=== PATIENT | female | born 1945 | race Caucasian/White ===

== ENCOUNTER → 2019-05-11 15:24 | Outpatient (ROUT) | payer OTHER, SELFPAY | PROVIDERS: PCP Family Medicine; Visit Provider Internal Medicine | DX: N39.0 Urinary tract infection, site not specified (principal) | CPT/HCPCS: 87086 ==

== ENCOUNTER 2020-01-25 12:51 | Emergency (ER) | payer OTHER, SELFPAY ==
--- NOTE | 2020-01-25 13:02 | ED.FALL ---
HPI - Fall General Chief Complaint: Fall Stated Complaint: Fell, Sharp Intense Pain In Rt Ribs, Lats Spasm Time Seen by Provider: 01/25/20 12:55 Source: patient Mode of arrival: Ambulatory Limitations: no limitations History of Present Illness HPI Narrative: 74-year-old female nonsmoker with history of insomnia, stroke, migraine, intervertebral disc pain of lumbar and thoracic region presents with a chief complaint of severe right-sided rib pain and spasming after a fall few days ago. She was sitting in her office and slipped out of her chair and landed on the right side ribs. Since then she has had intense pain particular with any range of motion. She denies any significant shortness of breath and has had no hemoptysis. She denies any head, neck or back pain. She denies other injury and is otherwise well and free of complaint. She has tried taking ibuprofen and Tylenol with little relief. She has tried heating pads, ice packs without relief. MD complaint: fall Onset (ago): day(s) Fall from: chair Fall witnessed: no Place fall occurred: home Loss of consciousness: none Prolonged down time: no Symptoms prior to fall: none Context: tripped/slipped Location of injury: chest Severity: moderate Quality: sharp Related Data Previous Rx's Medication Instructions Recorded gabapentin [Neurontin] 600 mg PO TID #540 cap 08/24/16 hydrocodone-acetaminophen 0 tab PO Q6HP PRN #30 tab 02/12/17 atorvastatin 10 mg tablet 10 mg PO HS #90 tab 09/17/17 atenolol 50 mg tablet 50 mg PO QDAY #90 tab 12/20/17 trazodone 50 mg tablet 50 mg PO HS #90 tab 12/20/17 sertraline 50 mg tablet 75 mg PO QDAY #135 tab 03/18/18 topiramate 50 mg tablet 50 mg PO BID #180 tab 06/16/18 cyclobenzaprine 10 mg PO TID PRN #14 tab 01/25/20 hydrocodone-acetaminophen 1 tab PO Q4-6H PRN #20 tab 01/25/20 lidocaine [Lidoderm] 1 patch TOP DAILY #15 each 01/25/20 Allergies Allergy/AdvReac Type Severity Reaction Status Date / Time Penicillins [PENICILLINS] Allergy Unknown Unverified 07/10/17 12:18 codeine [CODEINE] AdvReac Severe Unverified 07/10/17 12:18 Review of Systems Constitutional Constitutional: Denies chills, Denies fatigue, Denies fever(s), Denies frequent falls, Denies lethargy and Denies weakness Eyes Eyes: Denies change in vision, Denies eye discharge, Denies irritation and Denies loss of vision ENT Ears, Nose, Mouth, and Throat: Denies change in voice, Denies dizziness, Denies neck pain, Denies sore throat and Denies throat swelling Cardiovascular Cardiovascular: Reports chest pain, Denies irregular heart rhythm, Denies lightheadedness, Denies palpitations, Denies dyspnea, Denies dyspnea on exertion and Denies orthopnea Respiratory Respiratory: Denies cough, Denies dyspnea, Denies dyspnea on exertion and Denies wheezing Gastrointestinal Gastrointestinal: Denies abdominal pain, Denies change in bowel habits, Denies diarrhea, Denies nausea and Denies vomiting Musculoskeletal Musculoskeletal: Denies neck pain and Denies numbness Integumentary/Breasts Skin/Breast: Denies pruritus, Denies erythema, Denies rash and Denies wounds Neurologic Neurologic: Denies behavioral changes, Denies confusion, Denies dizziness, Denies frequent falls, Denies loss of vision, Denies numbness and Denies weakness Psychiatric Psychiatric: Denies anxiety, Denies behavioral changes, Denies confusion, Denies depression, Denies homicidal ideation and Denies suicidal ideation Endocrine Endocrine: Denies fatigue, Denies flushing and Denies palpitations Hematologic/Lymphatic Hematologic/Lymphatic: Denies easy bruising Allergic/Immunologic Allergic/Immunologic: Denies urticaria, Denies throat swelling and Denies wheezing Patient History Social History Smoking Status: Never smoker Smoking Status: Never smoker alcohol intake frequency: 0-2 drinks per day Substance Use Type: does not use Exam Narrative Exam Narrative: GENERAL: [74] year old patient appears stated age. Well-nourished, well-developed patient, in mild distress. GCS 15 HEAD: Atraumatic. Normocephalic. EYES: Pupils equal round and reactive. Extraocular motions intact. No scleral icterus. No injection or drainage. ENT: Nose without bleeding, purulent drainage. Throat without erythema, tonsillar hypertrophy or exudate. Airway patent. NECK: Trachea midline. Non tender CARDIOVASCULAR: Regular rate and rhythm without murmurs, gallops, or rubs. RESPIRATORY: Clear to auscultation. Breath sounds equal bilaterally. No wheezes, rales, or rhonchi. GASTROINTESTINAL: Abdomen soft, non-tender, nondistended. EXTREMITIES: No edema or joint tenderness. BACK: Nontender without deformity or crepitance. No flank tenderness. NEURO: AOx3. SKIN: No rash or erythema of visible areas Initial Vital Signs Initial Vital Signs: Vital Signs Temperature 97.4 F L 01/25/20 13:06 Pulse Rate 79 01/25/20 13:06 Respiratory Rate 18 01/25/20 13:06 Blood Pressure 167/81 H 01/25/20 13:06 Pulse Oximetry 96 01/25/20 13:06 Course Orders Ordered: ED Orders 01/25/20 13:02 XR ribs RT min 3V w CXR1V Stat Discontinued Medications Lidocaine (Lidoderm) 1 each TOP NOW ONE Stop: 01/25/20 13:03 Last Admin: 01/25/20 13:19 Dose: 1 each Documented by: PALOMA Vital Signs Vital signs: Vital Signs - 8 hr 01/25/20 13:06 01/25/20 13:53 Temperature 97.4 F L Pulse Rate 79 Respiratory Rate 18 Blood Pressure 167/81 H Pulse Oximetry 96 99 MDM - Fall Imaging Data Chest x-ray: Radiologist's Impression: Roger Lynne 74 F [address] [address] XRay Report Signed Patient: Stephie Lynne#: [id number] : 1945cct:[id number] Age/Sex: 74 / FDate of Service: 01/25/20 Loc: ED Accession Number: [id number] Procedure: XR ribs RT min 3V w CXR1V Ordering Provider: Lew Gonzales D.O. PROCEDURE: XR RIBS RT MIN 3V W CXR 1V INDICATIONS: fall with severe pain, right lateral ribs TECHNIQUE: 2 views of the right ribs were acquired, along with a single view chest. COMPARISON: [facility], , CHEST 2 VIEW, 08/21/2012, 15:25. FINDINGS: Surgical changes and devices: Cholecystectomy clips. Bones and chest wall: Minimally displaced right lateral 9th rib fracture. No dislocations. No suspicious bony lesions. Overlying soft tissues appear unremarkable. Lungs and pleura: No pleural effusions or pneumothorax. Large hiatal hernia. Curvilinear opacity at the right lung base Mediastinum: Mediastinal contours appear normal. Heart size is normal. IMPRESSION: Minimally displaced right lateral 9th rib fracture is seen. Suspect mild right basilar atelectasis rather than contusion. Large hiatal hernia. Dictated by: Donn Harrington M.D. on 01/25/2020 at 13:22 Approved by: Donn Harrington M.D. on 01/25/2020 at 13:27 Discharge Plan Departure Patient Disposition: Home Clinical Impression: Closed rib fracture Qualifiers: Encounter type: initial encounter Rib fracture type: single rib Laterality: right Qualified Code(s): S22.31XA - Fracture of one rib, right side, initial encounter for closed fracture Instructions: DI for Rib Fracture Activity Restrictions/Additional Instructions: *You have been diagnosed with [fall with right 9th rib fracture] *What to do: *Take medications as directed *Follow up with your primary care provider in 2-3 days, call for an appointment. Let them know you were seen in the Emergency Department and that we ask that you be seen in follow up *Return to ER if you should have any new, worsening or concerning symptoms You have been prescribed narcotic medications. While on these medications you cannot drive or operate heavy machinery. Additionally you cannot sign legal documents or perform any duties such as this. Many people get constipated on narcotic medications so it would be advisable to discuss stool softeners with the pharmacist when you pick up man your prescription. Please understand that we cannot provide further refills of narcotics or controlled substances through the ED and your pain management will need to be through your Primary Care Provider Prescriptions: New cyclobenzaprine 10 mg tablet 10 mg PO TID PRN (Reason: muscle spasm) Qty: 14 RF: 0 hydrocodone-acetaminophen 5-325 mg tablet 1 tab PO Q4-6H PRN (Reason: pain) Qty: 20 RF: 0 lidocaine [Lidoderm] 5 % adhesive patch,medicated 1 patch TOP DAILY Qty: 15 RF: 0 No Action gabapentin [Neurontin] 300 MG capsule 600 mg PO TID Qty: 540 RF: 3 hydrocodone-acetaminophen 5 MG/325 MG tablet 0 tab PO Q6HP PRNQty: 30 RF: 0 atorvastatin [Lipitor] 10 mg tablet 10 mg PO HS Qty: 90 RF: 1 trazodone 50 mg tablet 50 mg PO HS Qty: 90 RF: 3 atenolol 50 mg tablet 50 mg PO QDAY Qty: 90 RF: 3 sertraline 50 mg tablet 75 mg PO QDAY Qty: 135 RF: 0 topiramate [Topamax] 50 mg tablet 50 mg PO BID Qty: 180 RF: 0 Referrals: James Camacho MD [Primary Care Provider] -
[2020-01-25 13:06] VITALS: BP 167/81; PULSE 79; RESP 18; TEMP 36.3; O2SAT 96; BMI 27.4
[2020-01-25] MEDS: LIDOCAINE PATCH 1 EACH ADH..PATCH TOP (13:19)
[2020-01-25 13:53] VITALS: O2SAT 99
[2020-01-25 13:56] VITALS: BP 165/77; PULSE 64; RESP 16; O2SAT 98
== END 2020-01-25 13:56 | disposition home or self-care (01) ==
PROVIDERS: Emergency Provider Emergency Medicine; PCP Internal Medicine
DX: S22.31XA Fracture of one rib, right side, initial encounter for closed fracture (principal); W19.XXXA Unspecified fall, initial encounter
CPT/HCPCS: 71101; 99283

== ENCOUNTER 2020-10-14 11:14 | Emergency (ER) | payer OTHER, SELFPAY ==
[2020-10-14 11:23] VITALS: BP 160/72; PULSE 60; RESP 14; TEMP 36.7; O2SAT 96
--- NOTE | 2020-10-14 11:53 | ED.SKABFB ---
HPI - Skin/Abscess/Foreign Bdy General Chief complaint: Skin/Abscess/Foreign Body Stated complaint: right hand swelling/pain from bug bite Time Seen by Provider: 10/14/20 11:51 Source: patient Mode of arrival: Ambulatory Limitations: no limitations History of Present Illness HPI narrative: Patient is a 75-year-old female who several days ago sustained which she states was a bug bite on the back of her right ring finger. Since that time she has increasing pain and swelling until over the past 24 hours she has noticed the swelling and redness extend to the back of her hand. She does have some movement difficulties because of the swelling. No fevers. Has not tried anything for the symptoms prior to arrival. Related Data Previous Rx's Medication Instructions Recorded gabapentin 300 mg capsule 600 mg PO TID #540 cap 08/24/16 (Neurontin) hydrocodone 5 mg-acetaminophen 325 0 tab PO Q6HP PRN #30 tab 02/12/17 mg tablet atorvastatin 10 mg tablet (Lipitor) 10 mg PO HS #90 tab 09/17/17 atenolol 50 mg tablet 50 mg PO QDAY #90 tab 12/20/17 trazodone 50 mg tablet 50 mg PO HS #90 tab 12/20/17 sertraline 50 mg tablet 75 mg PO QDAY #135 tab 03/18/18 topiramate 50 mg tablet (Topamax) 50 mg PO BID #180 tab 06/16/18 cyclobenzaprine 10 mg tablet 10 mg PO TID PRN #14 tab 01/25/20 hydrocodone 5 mg-acetaminophen 325 1 tab PO Q4-6H PRN #20 tab 01/25/20 mg tablet lidocaine 5 % topical patch 1 patch TOP DAILY #15 each 01/25/20 (Lidoderm) doxycycline hyclate 100 mg tablet 100 mg PO BID 7 Days #14 tab 10/14/20 Allergies Allergy/AdvReac Type Severity Reaction Status Date / Time Penicillins [PENICILLINS] Allergy Unknown Verified 10/14/20 11:27 codeine [CODEINE] AdvReac Severe Difficulty Verified 10/14/20 11:27 Breathing Review of Systems Constitutional Constitutional: Denies fever(s) Cardiovascular Cardiovascular: Reports system reviewed and no additional complaints, except as documented Respiratory Respiratory: Reports system reviewed and no additional complaints, except as documented Gastrointestinal Gastrointestinal: Reports system reviewed and no additional complaints, except as documented Musculoskeletal Musculoskeletal: Reports as per HPI Integumentary/Breasts Skin/Breast: Reports as per HPI Neurologic Neurologic: Reports system reviewed and no additional complaints, except as documented Hematologic/Lymphatic On Anticoagulants: No Patient History Medical History Anxiety (02/12/17) Depression (01/10/15) History of migraine (01/10/15) History of stroke (01/10/15) Social History Smoking Status: Never smoker Smoking Status: Never smoker alcohol intake frequency: 0-2 drinks per day Alcohol type: wine Substance Use Type: does not use Exam Initial Vital Signs Initial Vital Signs: Vital Signs Temperature 98.1 F 10/14/20 11:23 Pulse Rate 60 10/14/20 11:23 Respiratory Rate 14 10/14/20 11:23 Blood Pressure 160/72 H 10/14/20 11:23 Pulse Oximetry 96 10/14/20 11:23 Resp Effort & Inspection: normal respiratory effort Cardio Pulses: radial pulses present on the right Skin Other: Patient does have circumferential swelling and redness to her right ring finger with erythema extending on the dorsum of her hand. Does not extend proximal to the wrist. Neuro General: patient alert, patient awake, patient oriented x3 and moves all extremities Extrem Other: No tenderness along the flexor tendons of the ring finger. She is able to flex and extend without discomfort but it is limited somewhat secondary to swelling. Psych Appearance: grossly normal and well kempt Course Vital Signs Vital signs: Vital Signs - 8 hr 10/14/20 11:23 Temperature 98.1 F Pulse Rate 60 Respiratory Rate 14 Blood Pressure 160/72 H Pulse Oximetry 96 MDM - Skin/Abscess/Foreign Bdy MDM Narrative Medical decision making narrative: Patient is well-appearing. Her finger infection is consistent with cellulitis. Low suspicion for abscess. Low suspicion for flexor tenosynovitis. Will start the patient on oral antibiotics. She was given strict return precautions with regard to returning. She expressed understanding and agreement this plan. Discharge Plan Departure Patient Disposition: Home Clinical Impression: Cellulitis Instructions: DI for Cellulitis -- Adult Activity Restrictions/Additional Instructions: A prescription for antibiotics was electronically transmitted to [facility]. Please start taking them as directed. If your symptoms worsen over the next 24-48 hours you do need to return to the emergency department for further evaluation. Contact your primary provider for follow-up. Prescriptions: New doxycycline hyclate 100 mg tablet 100 mg PO BID 7 Days Qty: 14 RF: 0 No Action gabapentin [Neurontin] 300 MG capsule 600 mg PO TID Qty: 540 RF: 3 hydrocodone-acetaminophen 5 MG/325 MG tablet 0 tab PO Q6HP PRNQty: 30 RF: 0 atorvastatin [Lipitor] 10 mg tablet 10 mg PO HS Qty: 90 RF: 1 trazodone 50 mg tablet 50 mg PO HS Qty: 90 RF: 3 atenolol 50 mg tablet 50 mg PO QDAY Qty: 90 RF: 3 sertraline 50 mg tablet 75 mg PO QDAY Qty: 135 RF: 0 topiramate [Topamax] 50 mg tablet 50 mg PO BID Qty: 180 RF: 0 cyclobenzaprine 10 mg tablet 10 mg PO TID PRN (Reason: muscle spasm) Qty: 14 RF: 0 hydrocodone-acetaminophen 5-325 mg tablet 1 tab PO Q4-6H PRN (Reason: pain) Qty: 20 RF: 0 lidocaine [Lidoderm] 5 % adhesive patch,medicated 1 patch TOP DAILY Qty: 15 RF: 0 Referrals: James Camacho MD [Primary Care Provider] -
== END 2020-10-14 12:03 | disposition home or self-care (01) ==
PROVIDERS: Emergency Provider Emergency Medicine; PCP Internal Medicine
DX: L03.011 Cellulitis of right finger (principal)
CPT/HCPCS: 99281

== ENCOUNTER 2021-08-15 11:18 | Emergency (ER) | payer OTHER, SELFPAY ==
[2021-08-15 11:20] VITALS: BP 133/63; PULSE 68; RESP 14; TEMP 36.8; O2SAT 97; BMI 28.3
--- NOTE | 2021-08-15 11:27 | DI.RAD.S_ITS ---
PROCEDURE: XR HAND RT MIN 3V INDICATIONS: bilateral hand injury TECHNIQUE: 3 views of the hand(s) acquired. COMPARISON: None. FINDINGS: Bones: No fractures or dislocations. Carpal bones are normally aligned. No suspicious bony lesions. Soft tissues: No suspicious soft tissue calcifications. IMPRESSION: No acute fracture. No osseous lesion. If symptoms and/or clinical suspicion for pathology persist, further assessment with repeat, or advanced imaging (e.g., CT, MRI, or bone scan) may be helpful for further assessment. Dictated by: Mariposa Bray M.D. on 08/15/2021 at 11:59 Approved by: Mariposa Bray M.D. on 08/15/2021 at 12:00
--- NOTE | 2021-08-15 11:27 | DI.RAD.S_ITS ---
PROCEDURE: XR HAND LT MIN 3V INDICATIONS: bilateral hand injury TECHNIQUE: 3 views of the hand(s) acquired. COMPARISON: None. FINDINGS: Bones: Small bony fragment adjacent to the distal aspect of the proximal phalanx of the 1st digit.. Carpal bones are normally aligned. No suspicious bony lesions. Soft tissues: No suspicious soft tissue calcifications. IMPRESSION: Small bony fragment adjacent to the 1st digit as described above, possibly indicating a small chip or avulsion fracture. Clinical correlation recommended. Dictated by: Mariposa Bray M.D. on 08/15/2021 at 11:58 Approved by: Mariposa Bray M.D. on 08/15/2021 at 11:58
--- NOTE | 2021-08-15 11:43 | PC.NURSE ---
Pt reports she was trying to prevent a chest from falling and top of both hands were hit by wooden chest. Right middle and left pointer finger are still painful when trying to complete daily tasks. States I can't hold a cup with one hand and I keep dropping plates. Bruising and some swelling still present. Pt has been using ice, heat, and ibuprofen.
--- NOTE | 2021-08-15 12:21 | ED.UPPEXIN ---
HPI - Extremity Injury (Upper) <Tawnya Hernandez PA-C - Last Filed: 08/15/21 12:31> General Chief Complaint: Extremity Injury, Upper Stated Complaint: Wood Chest fell on hands 2 wks ago, pain in hands Time Seen by Provider: 08/15/21 11:46 Source: patient Mode of arrival: Ambulatory History of Present Illness HPI narrative: 75-year-old female presents to the ED for bilateral hand pain from an injury sustained 10 days prior to arrival. Patient had a wooden chest fall on her bilateral hands by accident, since when patient has had pain on bilateral dorsal aspects of her hands. 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 Patient denies numbness, tingling, weakness. Patient is not on blood thinners. Related Data Previous Rx's Medication Instructions Recorded gabapentin 300 mg capsule 600 mg PO TID #540 cap 08/24/16 (Neurontin) hydrocodone 5 mg-acetaminophen 325 0 tab PO Q6HP PRN #30 tab 02/12/17 mg tablet atorvastatin 10 mg tablet (Lipitor) 10 mg PO HS #90 tab 09/17/17 atenolol 50 mg tablet 50 mg PO QDAY #90 tab 12/20/17 trazodone 50 mg tablet 50 mg PO HS #90 tab 12/20/17 sertraline 50 mg tablet 75 mg PO QDAY #135 tab 03/18/18 topiramate 50 mg tablet (Topamax) 50 mg PO BID #180 tab 06/16/18 cyclobenzaprine 10 mg tablet 10 mg PO TID PRN #14 tab 01/25/20 hydrocodone 5 mg-acetaminophen 325 1 tab PO Q4-6H PRN #20 tab 01/25/20 mg tablet lidocaine 5 % topical patch 1 patch TOP DAILY #15 each 01/25/20 (Lidoderm) Allergies Allergy/AdvReac Type Severity Reaction Status Date / Time Penicillins [PENICILLINS] Allergy Unknown Verified 08/15/21 11:25 codeine [CODEINE] AdvReac Severe Difficulty Verified 08/15/21 11:25 Breathing Review of Systems <Tawnya Hernandez PA-C - Last Filed: 08/15/21 12:31> Review of Systems ROS Unobtainable: All systems reviewed & are unremarkable except as noted in HPI and below Constitutional Constitutional: Denies chills, Denies fatigue, Denies fever(s), Denies frequent falls, Denies lethargy and Denies weakness Eyes Eyes: Denies change in vision, Denies eye discharge, Denies irritation and Denies loss of vision ENT Ears, Nose, Mouth, and Throat: Denies change in voice, Denies dizziness, Denies neck pain, Denies sore throat and Denies throat swelling Cardiovascular Cardiovascular: Denies chest pain, Denies irregular heart rhythm, Denies lightheadedness, Denies palpitations, Denies dyspnea, Denies dyspnea on exertion and Denies orthopnea Respiratory Respiratory: Denies cough, Denies dyspnea, Denies dyspnea on exertion and Denies wheezing Gastrointestinal Gastrointestinal: Denies abdominal pain, Denies change in bowel habits, Denies diarrhea, Denies nausea and Denies vomiting Genitourinary Genitourinary: Denies hematuria, Denies flank pain, Denies urinary incontinence and Denies urinary urgency Musculoskeletal Musculoskeletal: Denies back pain, Denies muscle weakness, Denies neck pain, Denies numbness and Denies tingling Comments: Bilateral hand pain Integumentary/Breasts Skin/Breast: Denies pruritus, Denies erythema, Denies rash and Denies wounds Neurologic Neurologic: Denies behavioral changes, Denies confusion, Denies dizziness, Denies frequent falls, Denies loss of vision, Denies numbness, Denies tingling and Denies weakness Psychiatric Psychiatric: Denies anxiety, Denies behavioral changes, Denies confusion, Denies depression, Denies homicidal ideation and Denies suicidal ideation Endocrine Endocrine: Denies fatigue, Denies flushing and Denies palpitations Hematologic/Lymphatic Hematologic/Lymphatic: Denies easy bruising Allergic/Immunologic Allergic/Immunologic: Denies urticaria, Denies throat swelling and Denies wheezing Patient History <Tawnya Hernandez PA-C - Last Filed: 08/15/21 12:31> Medical History Anxiety (02/12/17) Depression (01/10/15) History of migraine (01/10/15) History of stroke (01/10/15) Social History Smoking Status: Never smoker Smoking Status: Never smoker alcohol intake frequency: 0-2 drinks per day Alcohol type: wine Substance Use Type: does not use Exam <Tawnya Hernandez PA-C - Last Filed: 08/15/21 12:31> Initial Vital Signs Initial Vital Signs: Vital Signs Temperature 98.3 F 08/15/21 11:20 Pulse Rate 68 08/15/21 11:20 Respiratory Rate 14 08/15/21 11:20 Blood Pressure 133/63 08/15/21 11:20 Pulse Oximetry 97 08/15/21 11:20 Const General: cooperative, healthy appearing and comfortable HENCO Head: normal to inspection Eyes General: Yes appearance normal, both eyes and all related structures Resp Effort & Inspection: normal respiratory effort Cardio Rate: regular rate Skin General: no rashes or lesions noted Neuro General: patient alert, patient awake and patient oriented x3 Extrem Other: Tenderness to palpation of bilateral dorsal aspects of hands. No bruising, swelling, erythema. Skin is intact. Strength and sensation is intact. Neurovascularly intact. Compartments soft. Psych Appearance: grossly normal Mental Status: mental status grossly normal <DO Mita Decker Last Filed: 08/18/21 07:00> Initial Vital Signs Initial Vital Signs: Vital Signs Temperature 98.3 F 08/15/21 11:20 Pulse Rate 68 08/15/21 11:20 Respiratory Rate 14 08/15/21 11:20 Blood Pressure 133/63 08/15/21 11:20 Pulse Oximetry 97 08/15/21 11:20 Course <DANY Jansen Last Filed: 08/15/21 12:31> Orders Ordered: ED Orders 08/15/21 11:27 XR hand LT min 3V Stat XR hand RT min 3V Stat Vital Signs Vital signs: Vital Signs - 8 hr 08/15/21 11:20 Temperature 98.3 F Pulse Rate 68 Respiratory Rate 14 Blood Pressure 133/63 Pulse Oximetry 97 <DO Mita Decker Last Filed: 08/18/21 07:00> Orders Ordered: ED Orders 08/15/21 11:27 XR hand LT min 3V Stat XR hand RT min 3V Stat Vital Signs Vital signs: Vital Signs - 8 hr 08/15/21 11:20 Temperature 98.3 F Pulse Rate 68 Respiratory Rate 14 Blood Pressure 133/63 Pulse Oximetry 97 MDM - Extremity Injury (Upper) <DANY Jansen Last Filed: 08/15/21 12:31> Medical Records Attestation: I reviewed the patient's medical records. Imaging Data Extremity x-ray #1: Radiologist's Impression: PROCEDURE:? XR HAND RT MIN 3V ? INDICATIONS:? bilateral hand injury ? TECHNIQUE:? 3 views of the hand(s) acquired.? ? COMPARISON:? None. ? FINDINGS:? ? Bones:? No fractures or dislocations.? Carpal bones are normally aligned.? No suspicious bony lesions.? ? Soft tissues:? No suspicious soft tissue calcifications.? ? ? IMPRESSION:? No acute fracture. No osseous lesion. If symptoms and/or clinical suspicion for pathology persist, further assessment with repeat, or advanced imaging (e.g., CT, MRI, or bone scan) may be helpful for further assessment. ? ? Dictated by: Mariposa Bray M.D. on 08/15/2021 at 11:59 ? ? Approved by: Mariposa Bray M.D. on 08/15/2021 at 12:00 ? Extremity x-ray #2: Radiologist's Impression: PROCEDURE:? XR HAND LT MIN 3V ? INDICATIONS:? bilateral hand injury ? TECHNIQUE:? 3 views of the hand(s) acquired.? ? COMPARISON:? None. ? FINDINGS:? ? Bones:? Small bony fragment adjacent to the distal aspect of the proximal phalanx of the 1st digit..? Carpal bones are normally aligned.? No suspicious bony lesions.? ? Soft tissues:? No suspicious soft tissue calcifications.? ? ? IMPRESSION:? Small bony fragment adjacent to the 1st digit as described above, possibly indicating a small chip or avulsion fracture.? Clinical correlation recommended.? ? Dictated by: Mariposa Bray M.D. on 08/15/2021 at 11:58 ? ? Approved by: Mariposa Bray M.D. on 08/15/2021 at 11:58 ? MDM Narrative Medical decision making narrative: 75-year-old female presents to the ED for bilateral hand pain from an injury sustained 10 days prior to arrival. Concern for musculoskeletal sprain/strain versus fracture/dislocation. X-rays were obtained of bilateral hands, which showed no major fracture/dislocation in the areas where the patient complains of pain. There was a small avulsion fracture noted in in the region of the PIP of 1st digit, however patient complains of no pain in that area. Supportive care discussed with patient with ibuprofen/Tylenol, warmth. Patient agrees to follow-up with her PCP/physical therapy if her symptoms do not resolve in the next few days. ED precautions discussed with patient. Patient verbalized understanding. Discharge Plan Departure Patient Disposition: Home Clinical Impression: Hand injury Instructions: DI for Hand Injury Activity Restrictions/Additional Instructions: You were evaluated in the ED today for a hand injury. Your x-rays did not show any major fractures or dislocations. A small avulsion fracture which is [place] tiny piece of your bone in your left thumb appears to be chipped, however you do not have any pain in that area, and no treatment is indicated for it. May take ibuprofen or Tylenol for your symptoms. Please follow-up with your PCP and physical therapy if your symptoms do not resolve over the next few days. Return to the ED if you notice any weakness, tingling, numbness in your hands. Prescriptions: No Action gabapentin [Neurontin] 300 MG capsule 600 mg PO TID Qty: 540 3RF hydrocodone-acetaminophen 5 MG/325 MG tablet 0 tab PO Q6HP PRNQty: 30 0RF atorvastatin [Lipitor] 10 mg tablet 10 mg PO HS Qty: 90 1RF trazodone 50 mg tablet 50 mg PO HS Qty: 90 3RF atenolol 50 mg tablet 50 mg PO QDAY Qty: 90 3RF sertraline 50 mg tablet 75 mg PO QDAY Qty: 135 0RF topiramate [Topamax] 50 mg tablet 50 mg PO BID Qty: 180 0RF Rx Instructions: Patient needs to est. care with a new PCP prior to future fills. 06/16/18 cyclobenzaprine 10 mg tablet 10 mg PO TID PRN (Reason: muscle spasm) Qty: 14 0RF hydrocodone-acetaminophen 5-325 mg tablet 1 tab PO Q4-6H PRN (Reason: pain) Qty: 20 0RF lidocaine [Lidoderm] 5 % adhesive patch,medicated 1 patch TOP DAILY Qty: 15 0RF Rx Instructions: leave on most painful area for 12 hrs Referrals: James Camacho MD [Primary Care Provider] - <Annie Coronado DO - Last Filed: 08/18/21 07:00> Cosign ED Attending Cosignature Attestation: I was immediately available in the department for consultation. Documentation has been reviewed. I agree with assessment and plan.
[2021-08-15 12:27] VITALS: BP 155/67; PULSE 65; RESP 18; O2SAT 99
== END 2021-08-15 12:28 | disposition home or self-care (01) ==
PROVIDERS: Emergency Provider Student in an Organized Health Care Education/Training Program; PCP Internal Medicine
DX: S69.91XA Unspecified injury of right wrist, hand and finger(s), initial encounter (principal); S69.92XA Unspecified injury of left wrist, hand and finger(s), initial encounter; W22.8XXA Striking against or struck by other objects, initial encounter
CPT/HCPCS: 73130; 99281; 99283